=== PATIENT | female | born 1995 ===

== ENCOUNTER → 2025-01-21 | Outpatient (CLI) | payer OTHER ==
[2025-01-25 07:15] LABS: APTIMA MEDIA TYPE Urine; C. TRACHOMATIS BY TMA Negative (Negative); N. GONORRHOEAE BY TMA Negative (Negative); SPECIMEN SOURCE Urine
== END ==
LOC: LAB SHORT 17:20 → LAB 17:20
PROVIDERS: Obstetrics & Gynecology
DX: O26.892 Other specified pregnancy related conditions, second trimester (principal); Z3A.00 Weeks of gestation of pregnancy not specified; R30.0 Dysuria
CPT/HCPCS: 87086; 87491; 87591

== ENCOUNTER → 2025-04-23 | Outpatient (CLI) | payer OTHER | LOC: LAB 17:09 → LAB SHORT 17:09 | DX: O09.93 Supervision of high risk pregnancy, unspecified, third trimester (principal); Z3A.00 Weeks of gestation of pregnancy not specified | CPT/HCPCS: 87081 ==

== ENCOUNTER 2025-05-10 05:26 | Inpatient (IN) | payer OTHER ==
[~2025-05-10] VITALS: Ht 157.5 cm; Wt 58.0 kg
[2025-05-10] VITALS (66 sets, daily range): BP systolic 77–146; BP diastolic 50–96
[2025-05-10] MEDS ORDERED: ePHEDrine Sulfate 50 MG/ML 1ML Injection XX PRN (08:15)
[2025-05-10] MEDS ORDERED: Ondansetron HCl 2 MG / ML 2ML Vial IV PRN ×3 (08:15→16:40)
[2025-05-10] MEDS ORDERED: FentaNYL Citrate 50 MCG/ML 2 ML Injection IV PRN ×4 (08:15→23:20)
[2025-05-10] MEDS ORDERED: Tranexamic Acid 100 ML IV SCH (08:15)
[2025-05-10] MEDS ORDERED: OXYTOCIN/RINGER'S LACTATE 500 ML IV PRN (08:15)
[2025-05-10] MEDS ORDERED: Carboprost Tromethamine 250 MCG/ML 1ML Amp IM PRN ×2 (08:15→16:20)
[2025-05-10] MEDS ORDERED: Oxytocin 10 Unit / ML Vial IM PRN (08:15)
[2025-05-10] MEDS ORDERED: FentaNYL 2mcg/ml-Bup 0.1% Epd 250 ML EPI PRN (08:15)
[2025-05-10] MEDS ORDERED: Methylergonovine Maleate 0.2MG / ML 1ML Amp IM PRN ×2 (08:15→16:30)
[2025-05-10 08:21] LABS: BASOPHILS ABSOLUTE AUTO 0.03 K/mm3 (0.00-0.23); BASOPHILS PERCENT AUTO 0 % (0-2); EOSINOPHILS ABSOLUTE AUTO 0.05 K/mm3 (0.00-0.68); EOSINOPHILS PERCENT AUTO 1 % (0-6); Hematocrit 37.2 % (33.0-51.0); Hemoglobin 11.8 g/dL (11.5-16.0); IMMATURE GRAN ABSOLUTE AUTO 0.08 K/mm3 (0.00-0.10); IMMATURE GRAN PERCENT AUTO 1 % (0-1); LYMPHOCYTES ABSOLUTE AUTO 1.99 K/mm3 (0.84-5.20); LYMPHOCYTES PERCENT AUTO 23 % (21-46); MONOCYTES ABSOLUTE AUTO 0.69 K/mm3 (0.16-1.47); MONOCYTES PERCENT AUTO 8 % (4-13); Mean Corpuscular HGB Conc 31.7 g/dL (31.5-36.5); Mean Corpuscular Volume 83 fL (80-100); NEUTROPHILS ABSOLUTE AUTO 5.81 K/mm3 (1.96-9.15); NEUTROPHILS PERCENT AUTO 67 % (41-73); NRBC ABSOLUTE 0.00 K/mm3 (0.00-0.02); NRBC Auto 0.0 /100 WBC (0.0-0.2); Platelet Count 307 K/mm3 (150-400); RDW Coefficient Variation 15.6 % (11.7-14.2); RDW Standard Deviation 46.0 fL (35.1-46.3)
[2025-05-10] MEDS ORDERED: FentaNYL Citrate 50 MCG/ML 2 ML Injection ONE (10:07)
[2025-05-10] MEDS ORDERED: CeFAZolin Sodium 2,000 MG in NS 100 ML IV SCH (13:15)
[2025-05-10] MEDS ORDERED: Morphine Sulfate/PF 1 MG/ML 10MLVIAL ONE (15:01)
[2025-05-10] MEDS ORDERED: Phenylephrine HCl 100 MCG/ML-NS 10MLSYR (1MG/10ML) ONE (15:37)
[2025-05-10] MEDS ORDERED: Oxytocin 10 Unit / ML Vial ONE (15:37)
[2025-05-10] MEDS ORDERED: Ondansetron HCl 2 MG / ML 2ML Vial ONE (15:37)
[2025-05-10 15:38] LABS: PCO2 Cord - Arterial 61.9 mmHg (40-50); PO2 Cord - Arterial < 12.0 mmHg (16-20); pH Cord - Arterial 7.21 (7.28-7.35)
[2025-05-10 15:39] LABS: PCO2 Cord - Venous 52.8 mmHg (40-50); PO2 Cord - Venous < 12.0 mmHg (28-32); pH Umbilical Cord - Venous 7.28 (7.26-7.35)
[2025-05-10] MEDS ORDERED: OXYTOCIN/RINGER'S LACTATE 500 ML IV SCH (16:20)
[2025-05-10] MEDS ORDERED: ePHEDrine Sulfate 50 MG/ML 1ML Injection IV PRN (16:40)
[2025-05-10] MEDS ORDERED: HYDROmorphone HCl/Pf 1MG SYR IV PRN (16:40)
[2025-05-10] MEDS ORDERED: Ketorolac Tromethamine 30mg Vial IV SCH (17:00)
--- NOTE | 2025-05-10 17:27 | NUR ---
SPOKE WITH DR HERNANDEZ REGARDING PERSISTENT BRADYCARDIA AND HYPOTENSION AT 1720. SHE IS ON HER WAY TO COME TO THE BEDSIDE TO EVALUATE PT.
[2025-05-10 18:27] LABS: BASOPHILS ABSOLUTE AUTO 0.03 K/mm3 (0.00-0.23); BASOPHILS PERCENT AUTO 0 % (0-2); EOSINOPHILS ABSOLUTE AUTO 0.00 K/mm3 (0.00-0.68); EOSINOPHILS PERCENT AUTO 0 % (0-6); Hematocrit 37.0 % (33.0-51.0); Hemoglobin 12.2 g/dL (11.5-16.0); IMMATURE GRAN ABSOLUTE AUTO 0.06 K/mm3 (0.00-0.10); IMMATURE GRAN PERCENT AUTO 1 % (0-1); LYMPHOCYTES ABSOLUTE AUTO 1.31 K/mm3 (0.84-5.20); LYMPHOCYTES PERCENT AUTO 11 % (21-46); MONOCYTES ABSOLUTE AUTO 0.59 K/mm3 (0.16-1.47); MONOCYTES PERCENT AUTO 5 % (4-13); Mean Corpuscular HGB Conc 33.0 g/dL (31.5-36.5); Mean Corpuscular Volume 80 fL (80-100); NEUTROPHILS ABSOLUTE AUTO 9.82 K/mm3 (1.96-9.15); NEUTROPHILS PERCENT AUTO 83 % (41-73); NRBC ABSOLUTE 0.00 K/mm3 (0.00-0.02); NRBC Auto 0.0 /100 WBC (0.0-0.2); Platelet Count 247 K/mm3 (150-400); RDW Coefficient Variation 15.5 % (11.7-14.2); RDW Standard Deviation 44.4 fL (35.1-46.3)
--- NOTE | 2025-05-10 18:52 | NUR ---
05/10/251851 Angela Flores PT TO OR WITH PITTMAN AND EPIDURAL IN PLACE. DELIVERY OF VIABLE FEMALE VIA SECTION. APGARS 8/9. DIFFICULT DELIVERY OF FETUS. PLACENTA DELIVERED COMPLETE.
--- NOTE | 2025-05-10 18:58 | NUR ---
1800: PT OFFERED TORDOL. PT DECLINED AT THIS TIME SHE IS CONCERNED BECAUSE HER FATHER HAD ANAPHALAXIS TO TORDOL. PT DENIES PAIN AT THIS TIME. PT WANTS TO THINK ABOUT IT. PT DOES TAKE MOTRIN WHEN NOT PREGNANCT AND TOLERATES FINE. PT WAS INFORMED WE COULD USE MOTRIN IF SHE PREFERRED. PT DECLINES ALL PAIN RX AT THIS TIME.
[2025-05-10] MEDS ORDERED: Methylergonovine Maleate 0.2MG / ML 1ML Amp XX ONE (19:25)
[2025-05-10] MEDS ORDERED: Magnesium Hydroxide Conc 10 ML UDC PO SCH (21:00)
[2025-05-10] MEDS ORDERED: Metoclopramide HCl 5MG / ML 2ML Vial IV ONE (23:25)
[2025-05-11] VITALS (10 sets, daily range): BP systolic 101–132; BP diastolic 62–81
[2025-05-11] MEDS ORDERED: Metoclopramide HCl 5MG / ML 2ML Vial IV PRN (00:10)
[2025-05-11 06:40] LABS: BASOPHILS ABSOLUTE AUTO 0.04 K/mm3 (0.00-0.23); BASOPHILS PERCENT AUTO 0 % (0-2); EOSINOPHILS ABSOLUTE AUTO 0.00 K/mm3 (0.00-0.68); EOSINOPHILS PERCENT AUTO 0 % (0-6); Hematocrit 34.0 % (33.0-51.0); Hemoglobin 11.4 g/dL (11.5-16.0); IMMATURE GRAN ABSOLUTE AUTO 0.07 K/mm3 (0.00-0.10); IMMATURE GRAN PERCENT AUTO 0 % (0-1); LYMPHOCYTES ABSOLUTE AUTO 1.32 K/mm3 (0.84-5.20); LYMPHOCYTES PERCENT AUTO 8 % (21-46); MONOCYTES ABSOLUTE AUTO 0.82 K/mm3 (0.16-1.47); MONOCYTES PERCENT AUTO 5 % (4-13); Mean Corpuscular HGB Conc 33.5 g/dL (31.5-36.5); Mean Corpuscular Volume 80 fL (80-100); NEUTROPHILS ABSOLUTE AUTO 13.72 K/mm3 (1.96-9.15); NEUTROPHILS PERCENT AUTO 86 % (41-73); NRBC ABSOLUTE 0.00 K/mm3 (0.00-0.02); NRBC Auto 0.0 /100 WBC (0.0-0.2); Platelet Count 307 K/mm3 (150-400); RDW Coefficient Variation 15.8 % (11.7-14.2); RDW Standard Deviation 45.1 fL (35.1-46.3)
[2025-05-11] MEDS ORDERED: Prenatal Vit/FE Fumarate/FA 1 Tab PO SCH (09:00)
--- NOTE | 2025-05-11 17:45 | NUR ---
PT FEELING GOOD TONIGHT. DENIES NEED FOR PAIN MEDICATION. UP AMBULATING AND VOIDING WITHOUT DIFFICULTY. CARING FOR SELF AND BABY INDEPENDANTLY. NO QUESTIONS OR CONCERNS.
[2025-05-12 06:09] VITALS: BP 103/61
[2025-05-12 07:37] VITALS: BP 113/77
[2025-05-12 07:49] LABS: HIV 1,2 COMBO ANTIGEN/ANTIBODY Negative (Negative)
[2025-05-12 09:38] LABS: HEPATITIS B SURFACE ANTIBODY <3.10 IU/L
[2025-05-12 10:50] LABS: HEPATITIS C AB CIA INTERP Negative (Negative); HEPATITIS C ANTIBODY CIA INDEX <0.02 IV
[2025-05-12 11:03] VITALS: BP 136/82
--- NOTE | 2025-05-12 11:10 | NUR ---
PT DECLINES MMR VACCINE
== END 2025-05-12 11:36 | disposition home or self-care (01) | DRG 788 ==
LOC: OBS 05:26 → BC 05:28 → OBS 07:58 → BC 07:59
PROVIDERS: Obstetrics & Gynecology; ADMIT Advanced Practice Midwife
PROC: 3E03329 Introduction of Other Anti-infective into Peripheral Vein, Percutaneous Approach (ICD-10-PCS; 2025-05-10)
PROC: 10D00Z1 Extraction of Products of Conception, Low, Open Approach (ICD-10-PCS; principal; 2025-05-10 13:00)
DX: O24.420 Gestational diabetes mellitus in childbirth, diet controlled (principal); O36.8330 Maternal care for abnormalities of the fetal heart rate or rhythm, third trimester, not applicable or unspecified; O99.62 Diseases of the digestive system complicating childbirth; K59.00 Constipation, unspecified; Z3A.38 38 weeks gestation of pregnancy; Z37.0 Single live birth
CPT/HCPCS: 36415; 51702; 59025; 82803; 82947; 85025; 86592; 86762; 86803; 86850; 86900; 86901; 87210; 87389; 93005; 93010; 99214; A9270; J0690; J2210; J2274; J2371; J2405; J2590; J3010; J7120